=== PATIENT | female | born 1965 | race Caucasian/White ===

== ENCOUNTER 2017-02-21 11:48 | Emergency (ER) | payer BC ==
[~2017-02-21] VITALS: Ht 167.6 cm; Wt 77.0 kg
[2017-02-21 12:07] VITALS: BP 134/76
== END 2017-02-21 16:43 | disposition home or self-care (01) ==
LOC: ER 12:45
DX: R51 Headache (principal); M54.2 Cervicalgia; M25.511 Pain in right shoulder; V49.9XXA Car occupant (driver) (passenger) injured in unspecified traffic accident, initial encounter; Y93.89 Activity, other specified; Y99.8 Other external cause status; Y92.410 Unspecified street and highway as the place of occurrence of the external cause; Z88.5 Allergy status to narcotic agent
CPT/HCPCS: 72125; 81025; 99284